=== PATIENT | male | born 1985 | race African-American/Black ===

== ENCOUNTER 2023-08-13 20:56 | Emergency (ER) | payer MEDICAID ==
[~2023-08-13] VITALS: Ht 190.5 cm; Wt 102.5 kg
[2023-08-13 21:07] VITALS: BP_SYST 159; PULSE 103; O2SAT 96
[2023-08-13] MEDS ORDERED: LISINOPRIL 10 MG TABLET (PRINIVIL) PO ONE (21:30)
[2023-08-13 21:46] LABS: BASOPHILS % (AUTO) 0.4 % (0.0-2.0); EOSINOPHILS # (AUTO) 0.1 K/uL (0.0-0.4); EOSINOPHILS % (AUTO) 0.8 % (0.0-4.0); HEMATOCRIT 45.4 % (36-54); HEMOGLOBIN 14.9 g/dL (14.0-18.0); LYMPHOCYTES # (AUTO) 1.5 K/uL (1.0-5.5); LYMPHOCYTES % (AUTO) 18.8 % (20.5-51.5); MEAN CORPUSCULAR HEMOGLOBIN 29 pg (27-31); MEAN CORPUSCULAR HGB CONC 33 % (32-36); MEAN CORPUSCULAR VOLUME 88 fL (79.0-98.0); MONOCYTES # (AUTO) 0.6 K/uL (0.0-1.0); MONOCYTES % (AUTO) 7.9 % (1.7-9.3); NEUTROPHILS # (AUTO) 5.6 K/uL (1.8-7.7); NEUTROPHILS % (AUTO) 72.1 % (40.0-70.0); PLATELET COUNT (AUTO) 282 K/uL (130-430); RED BLOOD CELL COUNT(AUTO) 5.14 MIL/uL (4.2-6.2); RED CELL DISTRIBUTION WIDTH 14.1 % (9.0-15.0); WHITE BLOOD COUNT (AUTO) 7.8 K/uL (4.8-10.8)
[2023-08-13 21:53] LABS: CALCIUM 9.4 mg/dL (8.4-11.0); CREATININE 1.46 mg/dL (0.55-1.30); POTASSIUM 3.9 mmol/L (3.5-5.1)
[2023-08-13] MEDS ORDERED: amLODIPine BESYLATE 5 MG TABLET PO ONE (22:45)
[2023-08-14] MEDS ORDERED: hydrALAZINE HCL 20 MG/ML VIAL IVP ONE
[2023-08-14] MEDS ORDERED: LISI1TAB57 PO (01:46)
[2023-08-14] MEDS ORDERED: AMLO5TAB4 PO (01:46)
[2023-08-14 01:50] VITALS: BP_SYST 140; PULSE 84; RESP 20; TEMP 97.7; O2SAT 95
== END 2023-08-14 01:50 | disposition home or self-care (01) ==
LOC: EDBD 20:56 → SED 20:56
DX: I10 Essential (primary) hypertension (principal); Z79.899 Other long term (current) drug therapy
CPT/HCPCS: 99285; 80048; 85025; 36415; 96374; J0360